=== PATIENT | female | born 1985 | race African-American/Black ===

== ENCOUNTER 2019-08-29 08:00 | Outpatient (CLI) | payer OTHER ==
[2015-09-02 05:57] VITALS: BMI 34.0
[~2019-08-29 08:00] MED LIST: HYDROCODONE-APA1 TAB PO; IBUPROFEN600 MG PO; TRANDATE100 MG PO
[2019-08-29] MEDS ORDERED: ZOLOFT50 MG PO (14:09)
[2019-08-29 14:28] LABS: BASOPHILS 1.4 % (0-2); EOSINOPHILS 6.1 % (0-7); HEMATOCRIT 37.6 % (36.0-48.0); HEMOGLOBIN 12.1 g/dL (12-16); IMMATURE GRANULOCYTES 0.2 % (0-5); LYMPHOCYTES 35.3 % (15-50); MCHC 32.2 g/dL (31.0-37.0); MCV 93.1 fL (80.0-100.0); MEAN PLATELET VOLUME 9.4 fL (7.4-10.4); MONOCYTES 7.7 % (2-11); NEUTROPHILS 49.3 % (40-80); RBC 4.04 10x6/uL (4.00-5.40); RDW 12.3 % (11.5-14.5); WBC 5.8 10x3/uL (4.8-10.8)
[2019-08-29 14:42] LABS: PLATELET COUNT 297 10x3/uL (130-400)
== END 2019-08-29 08:01 | disposition home or self-care (01) ==
LOC: D.PAN 08:00 → EDSTATUS 08-31 07:30 → D.OPS 08-31 07:30 → D.PAN 08-31 07:30
PROVIDERS: ATTEND Obstetrics & Gynecology
DX: R10.2 Pelvic and perineal pain (principal)

== ENCOUNTER 2019-10-12 05:29 | Day surgery (SDC) | payer OTHER ==
[2019-10-10 09:41] LABS: BASOPHILS 1.7 % (0-2); EOSINOPHILS 9.3 % (0-7); HEMATOCRIT 37.2 % (36.0-48.0); HEMOGLOBIN 12.1 g/dL (12-16); IMMATURE GRANULOCYTES 0.2 % (0-5); LYMPHOCYTES 37.4 % (15-50); MCH 30.1 pg (26.0-34.0); MCHC 32.5 g/dL (31.0-37.0); MCV 92.5 fL (80.0-100.0); MEAN PLATELET VOLUME 9.5 fL (7.4-10.4); MONOCYTES 7.4 % (2-11); PLATELET COUNT 289 10x3/uL (130-400); RBC 4.02 10x6/uL (4.00-5.40); RDW 12.4 % (11.5-14.5); WBC 5.4 10x3/uL (4.8-10.8)
[~2019-10-12] VITALS: Ht 165.1 cm; Wt 87.1 kg
--- NOTE | ~2019-10-12 | OP ---
PATIENT NAME: MIREILLE PARISI MEDICAL RECORD: [id number] :89 LOCATION:[facility] ADMISSION DATE: SURGEON: RALPH CABRAL MD DATE OF OPERATION: 10/12/2019 PREOPERATIVE DIAGNOSIS: Pelvic pain. POSTOPERATIVE DIAGNOSES: 1. Pelvic pain. 2. Endometriosis. 3. Adenomyosis. PROCEDURE: Diagnostic laparoscopy. SURGEON: Ralph Cabral MD ANESTHESIA: General via endotracheal. INTRAVENOUS FLUIDS: Per anesthesia record. SPECIMENS: None. COMPLICATIONS: None. ESTIMATED BLOOD LOSS: Minimal. FINDINGS: 1. Diffuse endometriosis of the anterior and posterior cul-de-sac. 2. Uterus consistent with adenomyosis. PROCEDURE IN DETAIL: The patient was taken to the operating room where general anesthesia was achieved without any difficulty. The patient was then prepped and draped in normal sterile fashion in the dorsal lithotomy position and placed in the [facility] stirrups. After prep and drape, the bladder was drained of approximately 200 cc of clear yellow urine. Attention was then turned to the umbilicus where a 5-mm incision was made in the midline and a 5-mm bladeless trocar was used to enter the intraperitoneal space under direct visualization with the laparoscope. Once intraperitoneal placement was visualized, the introducer was removed and the scope was replaced and intraperitoneal placement was confirmed visually. The patient was then insufflated and opening pressure was found to be less than 10 mmHg. The patient was then insufflated and a second port was placed in the midline approximately 5 cm superior to the pubic symphysis in the midline. A 5-mm skin incision was made at the site and a second bladeless trocar was then used to enter the intraperitoneal space under direct visualization of the laparoscope. Survey of the abdomen and pelvis was performed. Multiple areas of endometriosis were noted, especially in the posterior cul-de-sac. Some inflammatory fluid was irrigated and removed from the posterior cul-de-sac. Following complete survey of the abdomen and pelvis, the patient was desufflated and the scope was removed. The skin was repaired with 3-0 Vicryl in an interrupted fashion. The sponge stick was then removed from the vagina. The patient tolerated the procedure well, transported to the postanesthesia recovery stable without incident. TRANSINT:[id number] Voice Confirmation ID: [id number] DOCUMENT ID: [id number] OPERATIVE REPORT [id number] MIREILLE PARISI MICHAEL W MD CC: [id number] DICTATION DATE: 10/22/19 0941 TABLE LEVER OPERATOR: 10/22/19 1046 [facility] 10/12/19 [id number] [place] [address]
[~2019-10-12 05:29] MED LIST changes: +ZOLOFT50 MG PO
[2019-10-12 06:19] VITALS: BP 109/72; Ht 165.1 cm; Wt 87.1 kg
[2019-10-12 06:34] LABS: HCG URINE NEGATIVE (NEGATIVE)
--- NOTE | 2019-10-12 08:41 | NUR ---
PT AWAKENING, OPA OUT. SPO2 100% ON 10LPM VIA SM
--- NOTE | 2019-10-12 08:58 | NUR ---
AWAKE AND ALERT WITHOUT COMPLAINTS. FULL LIQUID TRAY TO ROOM
--- NOTE | 2019-10-12 09:36 | NUR ---
PAGED DR. TAVARES FOR DISCHARGE ORDERS
--- NOTE | 2019-10-12 10:04 | NUR ---
PAGED DR TAVARES FOR 2ND TIME FOR DISCHARGE ORDERS.
== END 2019-10-12 11:05 | disposition home or self-care (01) ==
LOC: D.PAN 05:29 → D.OPS 08:30 → D.PAN 11:05
PROVIDERS: ATTEND Obstetrics & Gynecology
DX: R10.2 Pelvic and perineal pain (principal); N94.6 Dysmenorrhea, unspecified; G43.909 Migraine, unspecified, not intractable, without status migrainosus; K21.9 Gastro-esophageal reflux disease without esophagitis; N80.9 Endometriosis, unspecified; N80.0 Endometriosis of uterus